=== PATIENT | male | born 1945 | race Caucasian/White ===

== ENCOUNTER 2018-08-21 21:41 | Inpatient (IN) | payer MEDICARE, BC ==
[~2018-08-21] VITALS: Ht 167.6 cm; Wt 122.0 kg
[2018-08-21] MEDS ORDERED: FLUO20CA39 PO (22:20)
[2018-08-21] MEDS ORDERED: LANTUS SQ (22:20)
[2018-08-21] MEDS ORDERED: MULT1TAB74 PO (22:20)
[2018-08-21] MEDS ORDERED: SIMV20TA5 PO (22:20)
[2018-08-21] MEDS ORDERED: PIOG15TA8 PO (22:20)
[2018-08-21] MEDS ORDERED: GLIP5TAB13 PO (22:20)
[2018-08-21] MEDS ORDERED: FINA5TAB11 PO (22:20)
[2018-08-21] MEDS ORDERED: ZOLP10TA5 PO (22:20)
[2018-08-21 22:26] LABS: BASOPHILS # (AUTO) 0.1 X10'3 (0-0.2); BASOPHILS % (AUTO) 0.8 % (0-1); EOSINOPHILS # (AUTO) 0.2 X10'3 (0-0.9); EOSINOPHILS % (AUTO) 2.8 % (0-6); HEMOGLOBIN 13.9 g/dl (14.0-17.9); LYMPHOCYTES # (AUTO) 1.5 X10'3 (1.1-4.8); LYMPHOCYTES % (AUTO) 21.3 % (21-51); MEAN CORPUSCULAR HEMOGLOBIN 31.8 PG (27.0-31.0); MEAN CORPUSCULAR HGB CONC 33.9 g/dL (33.0-36.5); MEAN CORPUSCULAR VOLUME 93.5 FL (78-98); MEAN PLATELET VOLUME 8.3 FL (7.4-10.4); MONOCYTES # (AUTO) 0.7 X10'3 (0-0.9); MONOCYTES % (AUTO) 10.3 % (2-12); NEUTROPHILS # (AUTO) 4.4 X10'3 (1.8-7.7); NEUTROPHILS % (AUTO) 64.8 % (42-75); PLATELET COUNT 184 X10'3 (140-440); RED BLOOD COUNT 4.39 X10'6 (4.70-6.10); RED CELL DISTRIBUTION WIDTH 14.2 % (11.5-14.5); WHITE BLOOD COUNT 6.9 X10'3 (4.5-11.0)
[2018-08-21 22:33] LABS: ALANINE AMINOTRANSFERASE 28 U/L (12-78); ALBUMIN 3.4 G/DL (3.4-5.0); ALKALINE PHOSPHATASE 81 IU/L (46-116); ANION GAP 11 (8-16); ASPARTATE AMINO TRANSFERASE 21 U/L (10-37); BILIRUBIN,TOTAL 0.4 MG/DL (0.1-1.0); BLOOD UREA NITROGEN 20 MG/DL (7-18); BUN/CREATININE RATIO 19.6 (5.4-32.0); CHLORIDE 106 MMOL/L (99-107); CREATININE 1.02 MG/DL (0.60-1.10); GLUCOSE 108 MG/DL (70-104); POTASSIUM 3.8 MMOL/L (3.5-5.1); SODIUM 141 MMOL/L (135-145); TOTAL CARBON DIOXIDE 24.3 MMOL/L (24-32); TOTAL PROTEIN 6.7 G/DL (6.4-8.2); eGFR 72 ML/MIN
[2018-08-21 22:40] LABS: INR 1.1 INR; PROTHROMBIN TIME 10.9 SECONDS (9.0-12.0)
[2018-08-21 22:41] LABS: PARTIAL THROMBOPLASTIN TIME 26 SECONDS (22-32)
[2018-08-22] VITALS (7 sets, daily range): BP systolic 131–189; BP diastolic 64–98
--- NOTE | 2018-08-22 00:39 | NUR ---
PT PLACED ON HOSPITAL BED FOR COMFORT
[2018-08-22] MEDS ORDERED: ondansetron/PF 4mg/2ml inj IV PRN (01:40)
[2018-08-22] MEDS ORDERED: magnesium hydroxide 30ml (MOM) UD suspension PO PRN (01:40)
[2018-08-22] MEDS ORDERED: mag hydrox/Alum hydrox/simeth 30ml oral suspension PO PRN (01:40)
[2018-08-22] MEDS ORDERED: acetaminophen 325mg tablet PO PRN (01:40)
[2018-08-22] MEDS ORDERED: dextrose 50%-water 50ml dispensing syringe IV PRN ×2 (01:45)
[2018-08-22] MEDS ORDERED: glucagon, human recombinant 1mg kit SUBCUT PRN (01:45)
[2018-08-22] MEDS ORDERED: dextrose ORAL solution 15 GM/59 ML bottle PO PRN ×2 (01:45)
[2018-08-22] MEDS ORDERED: MESSAGE TO PHARMACY PO ONE (01:45)
[2018-08-22] MEDS ORDERED: non-formulary drug (Zolpidem Tartrate* (Ambien*) 1 TAB) PO PRN (01:45)
--- NOTE | 2018-08-22 03:30 | NUR ---
PTS RHYTHM CHANGED. PRINTED OUT 5 LEAD AND ORDERED A 12 LEAD. AFTER SHOWING DR HERNANDEZ 5 LEAD WHILE WILL PCT WAS DOING 12 LEAD, PT CONVERTED BACK TO INITIAL RHYTHM
[2018-08-22 03:40] LABS: MAGNESIUM 1.7 MG/DL (1.5-2.4)
[2018-08-22 04:25] LABS: HEMOGLOBIN A1C 7.7 % (4.5-6.2)
--- NOTE | 2018-08-22 06:44 | NUR ---
Patient is resting comfortably. Attempted to call report, was told Pt. floor was unaware of Pt.
--- NOTE | 2018-08-22 06:53 | NUR ---
Patient in room ED 4. I have received report from LAURYN Carvalho and had the opportunity to ask questions and assume patient care.
[2018-08-22] MEDS ORDERED: zolpidem 5mg tablet PO PRN (07:45)
--- NOTE | 2018-08-22 07:51 | NUR ---
Blood sugar was checked by ER nurse at 0700. Patient just arrived to ut on PCU. Charted the blood sugar off of the glucometer check on the labs. Addendum: 08/22/18 at 0752 by Elizabeth Ball RN Amended: Links added.
[2018-08-22] MEDS: FLUoxetine 10mg capsule PO SCH (09:13)
[2018-08-22] MEDS: finasteride 5mg tablet PO SCH (09:31)
--- NOTE | 2018-08-22 12:39 | NUR ---
Not having patient meet protocol or giving him any insulin because he had a sugar of 64 at 0015 in the ER. The patient said that he was low this am and the night nurse had given him a bunch of carbs to eat. He was then 217 around 0500 and I had the ER nurse check his sugar at 0700 because I was going to need it and he wasn't up to the floor yet. I was not told that it was low around 0000. His sugar was 168 at 1200 which was lower than the 181 at 0700. I would expect him to go up at 1200 since he also ate a late breakfast. I believe that he was high at 0700 because of all the carbs he ate in the ER and I don't want to give him insulin because he went from 181 to 168 without any insulin. I'll re-check at 1700 and see if he is still above 160; if so, he'll be made a level 2.
--- NOTE | 2018-08-22 18:40 | NUR ---
Problems reprioritized. Patient report given, questions answered & plan of care reviewed with Tracey RN.
--- NOTE | 2018-08-22 18:49 | NUR ---
Spoke to Dr. Anthony this am regarding the patient's relatively high blood pressure on admit and we saw the patient and discussed what medications he was taking at home. Dr. Anthony was going to restart his lasix and enalapril but I haven't seen it come up yet. The patient's 1100 BP was normal 131/98 so I didn't page him until the 1500 vitals came around and his BP was elevated again. I paged him to remind him and gave him the numbers. (183/66, 175/69) I got no response. The patient is asymptomatic at this time. I will page him again before I leave.
[2018-08-22] MEDS: insulin Lispro (HumaLOG) vial - multi-dose SQ SCH (19:40)
[2018-08-22] MEDS: atorvastatin 10mg tablet PO SCH (21:50)
[2018-08-22] MEDS: insulin glargine (Lantus) pen - multi-dose SQ SCH (21:53)
[2018-08-23] VITALS (17 sets, daily range): BP systolic 156–192; BP diastolic 78–102
[2018-08-23] MEDS: enalaprilat dihydrate 2.5mg/2ml vial IV PRN ×3 (02:09→22:23)
[2018-08-23 05:39] LABS: BASOPHILS # (AUTO) 0.1 X10'3 (0-0.2); BASOPHILS % (AUTO) 0.9 % (0-1); EOSINOPHILS # (AUTO) 0.2 X10'3 (0-0.9); EOSINOPHILS % (AUTO) 4.1 % (0-6); HEMATOCRIT 40.6 % (42.0-52.0); HEMOGLOBIN 13.5 g/dl (14.0-17.9); LYMPHOCYTES # (AUTO) 1.3 X10'3 (1.1-4.8); LYMPHOCYTES % (AUTO) 21.8 % (21-51); MEAN CORPUSCULAR HEMOGLOBIN 31.7 PG (27.0-31.0); MEAN CORPUSCULAR HGB CONC 33.2 g/dL (33.0-36.5); MEAN CORPUSCULAR VOLUME 95.4 FL (78-98); MEAN PLATELET VOLUME 8.6 FL (7.4-10.4); MONOCYTES # (AUTO) 0.6 X10'3 (0-0.9); MONOCYTES % (AUTO) 10.3 % (2-12); NEUTROPHILS # (AUTO) 3.7 X10'3 (1.8-7.7); NEUTROPHILS % (AUTO) 62.9 % (42-75); PLATELET COUNT 152 X10'3 (140-440); RED BLOOD COUNT 4.25 X10'6 (4.70-6.10); RED CELL DISTRIBUTION WIDTH 14.2 % (11.5-14.5); WHITE BLOOD COUNT 5.9 X10'3 (4.5-11.0)
[2018-08-23 05:43] LABS: ALANINE AMINOTRANSFERASE 25 U/L (12-78); ALBUMIN 3.2 G/DL (3.4-5.0); ALKALINE PHOSPHATASE 68 IU/L (46-116); ANION GAP 13 (8-16); ASPARTATE AMINO TRANSFERASE 17 U/L (10-37); BILIRUBIN,TOTAL 0.5 MG/DL (0.1-1.0); BLOOD UREA NITROGEN 14 MG/DL (7-18); BUN/CREATININE RATIO 16.5 (5.4-32.0); CALCIUM 8.8 MG/DL (8.5-10.1); CHLORIDE 108 MMOL/L (99-107); CHOL/HDL RATIO 3.3 (0.00-4.99); CHOLESTEROL 120 MG/DL (0-200); CREATININE 0.85 MG/DL (0.60-1.10); GLUCOSE 85 MG/DL (70-104); HDL CHOLESTEROL 36 MG/DL (35-60); LDL CHOLESTEROL 77 MG/DL (50-100); POTASSIUM 3.6 MMOL/L (3.5-5.1); SODIUM 144 MMOL/L (135-145); TOTAL CARBON DIOXIDE 23.3 MMOL/L (24-32); TOTAL PROTEIN 6.3 G/DL (6.4-8.2); TRIGLYCERIDES 77 MG/DL (20-135); eGFR 89 ML/MIN
--- NOTE | 2018-08-23 07:10 | NUR ---
Patient in room PCU 3026. I have received report from LAURYN RESENDIZ and had the opportunity to ask questions and assume patient care.
[2018-08-23] MEDS: finasteride 5mg tablet PO SCH (07:48)
[2018-08-23] MEDS: FLUoxetine 10mg capsule PO SCH (07:48)
--- NOTE | 2018-08-23 10:01 | NUR ---
DM Consult: A1C 7.7. PT seen by HELLEN for written/verbal DM ed; RD contact information provided. HELLEN encouraged pt to attend CDE course. Addendum: 08/23/18 at [address] Amended: Links added.
[2018-08-23] MEDS ORDERED: famotidine/PF 10 mg/ml inj IV ONE (10:30)
[2018-08-23] MEDS ORDERED: ringers solution, lacted 1,000 ML IV SCH ×2 (10:30→12:45)
--- NOTE | 2018-08-23 11:33 | NUR ---
NOTIFIED LAURYN MEREDITH IN OR; NO ABX ORDERS, INFORMED CONSENT, SURG CONSENT. STATES "DR. CORLEY WILL DO THAT".
[2018-08-23] MEDS ORDERED: LIDOcaine 1% 30ml preserv. free vial ONE (12:38)
[2018-08-23] MEDS ORDERED: ceFAZolin 1000mg inj ONE (12:38)
[2018-08-23] MEDS ORDERED: meperidine/PF 25mg/ml syringe IV PRN ×3 (12:45)
[2018-08-23] MEDS ORDERED: ondansetron/PF 4mg/2ml inj IV PRN (12:45)
[2018-08-23] MEDS ORDERED: morphine 4 MG/ML inj SYRINge IV PRN ×2 (12:45)
[2018-08-23] MEDS ORDERED: proCHLORperazine 10 MG/2 ml inj IV PRN (12:45)
[2018-08-23] MEDS ORDERED: BUPIVAcaine/PF 2.5mg/ml (0.25%) 10ml vial ONE ×3 (12:47→14:45)
[2018-08-23] MEDS ORDERED: MIDAZolam 5mg/5ml vial ONE (13:34)
[2018-08-23] MEDS ORDERED: fentaNYL/PF 50MCG/1 ML 2ML syringe ONE (13:34)
--- NOTE | 2018-08-23 13:53 | NUR ---
report called to roshan sams rn in recovery room. went to surgery via bed at 1342.
[2018-08-23] MEDS ORDERED: CLINDAmcin 900mg/NS 50ml IVPB 50 ML IV ONE (14:00)
[2018-08-23] MEDS ORDERED: clindamycin phosphate 150mg/ml inj. ONE ×2 (14:20)
--- NOTE | 2018-08-23 15:39 | NUR ---
Received from OR via , accompanied by Anesthesiologist DR FINNEGAN and report given by Anesthesiolgist. AWAKE AND NAZIA PAIN. VITALS STABLE. DRESSING DI.
[2018-08-23] MEDS ORDERED: HYDROcodone/acetaminophen 10/325mg tab PO PRN (15:45)
--- NOTE | 2018-08-23 16:29 | NUR ---
Report called to receiving nurse. Transferred via BED Belongings . Special Issues communicated to receiving nurse. AWAKE AND ORIENTED. VITALS STABLE. DRESSING DI. NAZIA PAIN. TO U RM 3025A AT THIS TIME.
--- NOTE | 2018-08-23 16:35 | NUR ---
RECEIVED FROM VIA BED. 1 LITER NS OVER INC LEFT ANTERIOR UPPER CHEST, STERI STRIPS COVERED WITH TEGADERM. SITE WITHOUT SX OF HEMATOMA OR HEMORRHAGE. VS STABE, EXCEPT BP 176/91. WILL CONTINUE TO MONITOR.
--- NOTE | 2018-08-23 17:12 | NUR ---
PAGER ID: [phone] MESSAGE: DR. STOKES, [id number]/LITHIA, RETURNED FROM [facility] [place]. BP:176/91, 180/93, 185/94. CANNOT REPEAT VASOTEC IV TILL 1808. MARCELLA [id number]. TY
[2018-08-23] MEDS ORDERED: hydrALAZINE 20mg/ml inj. IV ONE (17:15)
[2018-08-23] MEDS: lisinopril 20mg tablet PO SCH (17:30)
--- NOTE | 2018-08-23 18:16 | NUR ---
Problems reprioritized. Patient report given, questions answered & plan of care reviewed with LAURYN LIRA.
--- NOTE | 2018-08-23 18:17 | NUR ---
Student documentation: I have reviewed and agree with all interventions, assessments performed and documented by ARACELI.
--- NOTE | 2018-08-23 18:18 | NUR ---
Student Medication Administration: For this medication-pass time frame, all medication were reviewed, dispensed, administered and documented per hospital policy by ARACELI..
--- NOTE | 2018-08-23 18:39 | NUR ---
received report from Prashant COMBS. at bedside, pt lying in bed eating dinner. in no discomfort or distress at this time. PPM placed today, site checked with Prashant RN, dressing CDI, no drainage present. will continue to monitor.
[2018-08-23] MEDS: clindamycin 600mg/D5W 50ml 50 ML IV SCH (20:23)
[2018-08-23] MEDS: atorvastatin 10mg tablet PO SCH (20:23)
[2018-08-23] MEDS: insulin glargine (Lantus) pen - multi-dose SQ SCH (20:39)
[2018-08-24] MEDS ORDERED: enalaprilat dihydrate 2.5mg/2ml vial IV PRN (00:10)
[2018-08-24] MEDS ORDERED: enalaprilat dihydrate 2.5mg/2ml vial IV ONE (00:10)
[2018-08-24] MEDS ORDERED: furosemide 40mg/4ml inj IV ONE (01:45)
[2018-08-24] MEDS: clindamycin 600mg/D5W 50ml 50 ML IV SCH ×3 (02:01→13:48)
[2018-08-24 03:00] VITALS: BP 175/92
[2018-08-24 05:00] VITALS: BP 165/90
[2018-08-24 05:24] LABS: BASOPHILS % (AUTO) 0.5 % (0-1); EOSINOPHILS # (AUTO) 0.1 X10'3 (0-0.9); EOSINOPHILS % (AUTO) 2.4 % (0-6); HEMATOCRIT 43.9 % (42.0-52.0); HEMOGLOBIN 14.7 g/dl (14.0-17.9); LYMPHOCYTES # (AUTO) 0.9 X10'3 (1.1-4.8); LYMPHOCYTES % (AUTO) 16.8 % (21-51); MEAN CORPUSCULAR HEMOGLOBIN 32.1 PG (27.0-31.0); MEAN CORPUSCULAR HGB CONC 33.4 g/dL (33.0-36.5); MONOCYTES # (AUTO) 0.6 X10'3 (0-0.9); MONOCYTES % (AUTO) 10.4 % (2-12); NEUTROPHILS # (AUTO) 3.9 X10'3 (1.8-7.7); NEUTROPHILS % (AUTO) 69.9 % (42-75); PLATELET COUNT 142 X10'3 (140-440); RED BLOOD COUNT 4.57 X10'6 (4.70-6.10); RED CELL DISTRIBUTION WIDTH 14.3 % (11.5-14.5); WHITE BLOOD COUNT 5.6 X10'3 (4.5-11.0)
[2018-08-24 05:32] LABS: ALANINE AMINOTRANSFERASE 22 U/L (12-78); ALBUMIN 3.3 G/DL (3.4-5.0); ALKALINE PHOSPHATASE 72 IU/L (46-116); ANION GAP 12 (8-16); ASPARTATE AMINO TRANSFERASE 21 U/L (10-37); BILIRUBIN,TOTAL 0.7 MG/DL (0.1-1.0); BLOOD UREA NITROGEN 10 MG/DL (7-18); BUN/CREATININE RATIO 11.6 (5.4-32.0); CALCIUM 8.9 MG/DL (8.5-10.1); CHLORIDE 106 MMOL/L (99-107); CREATININE 0.86 MG/DL (0.60-1.10); GLUCOSE 104 MG/DL (70-104); POTASSIUM 3.6 MMOL/L (3.5-5.1); SODIUM 141 MMOL/L (135-145); TOTAL CARBON DIOXIDE 23.3 MMOL/L (24-32); TOTAL PROTEIN 6.6 G/DL (6.4-8.2); eGFR 87 ML/MIN
[2018-08-24 06:00] VITALS: BP 163/81
--- NOTE | 2018-08-24 06:00 | NUR ---
Patient in room PCU 3026. I have received report from Yahaira COMBS and had the opportunity to ask questions and assume patient care.
--- NOTE | 2018-08-24 07:01 | NUR ---
Patient in room PCU 3026. I have received report from LAURYN LIRA and had the opportunity to ask questions and assume patient care.
[2018-08-24] MEDS ORDERED: potassium chloride 10mEq ER tablet PO SCH (08:00)
[2018-08-24] MEDS ORDERED: furosemide 40mg tablet PO SCH (08:00)
[2018-08-24] MEDS: lisinopril 20mg tablet PO SCH (08:34)
[2018-08-24] MEDS: FLUoxetine 10mg capsule PO SCH (08:34)
[2018-08-24] MEDS: finasteride 5mg tablet PO SCH (08:35)
[2018-08-24 11:00] VITALS: BP 144/87
[2018-08-24] MEDS: insulin Lispro (HumaLOG) vial - multi-dose SQ SCH (13:42)
[2018-08-24] MEDS ORDERED: POTA10TA19 PO (13:43)
[2018-08-24] MEDS ORDERED: CLIN-96 PO (13:43)
[2018-08-24] MEDS ORDERED: FURO40TA4 PO (13:43)
[2018-08-24] MEDS ORDERED: LISI40TA4 PO (13:43)
[2018-08-24 15:00] VITALS: BP 160/91
--- NOTE | 2018-08-24 16:34 | NUR ---
Education on new and continuing medications, signs and symptoms of disease processes gone over with Pt and family. Allowed Pt and family to ask questions and answer them. Tele leads removed from Pt and returned to telephone quotation clerk. IV removed from Pt. Pt belongings gathered and sent home with Pt and family. Pt wheel chaired down to lobby by nurse with family. Pt left hospital with family in private car at 1605. Addendum: 08/24/18 at 1644 by Clifton Ricketts RN Note on wrong patient
--- NOTE | 2018-08-24 17:50 | NUR ---
Education on new and continuing medications, signs and symptoms of disease processes gone over with Pt and daughter. Reviewed the need to make 1 week and 2 week follow up appointments with PCP, Dr. Reyes and Dr. Rubio. Allowed Pt and daughter to ask questions concerning hospital stay and discharge paper work. Tele leads removed from Pt and returned to television presenter. IV removed from Pt. Pt belongings gathered and sent home with Pt and daughter. Pt wheel chaired down to lobby by nurse with daughter. Pt left hospital with daughter in private car at 1745.
--- NOTE | 2018-08-24 18:49 | NUR ---
OPTICAL GLASS ETCHERhair specialist: I have reviewed and agree with all interventions, assessments performed and documented by LAURYN ALEJANDRO.
== END 2018-08-24 17:43 | disposition home health service (06) | DRG 242 ==
LOC: ER 21:42 → ED HOLD 08-22 01:39 → PCU 3S 08-22 07:30
PROVIDERS: ADMIT Internal Medicine; ATTEND Family Medicine
PROC: 02HK3JZ Insertion of Pacemaker Lead into Right Ventricle, Percutaneous Approach (ICD-10-PCS; 2018-08-23)
PROC: 02H63JZ Insertion of Pacemaker Lead into Right Atrium, Percutaneous Approach (ICD-10-PCS; 2018-08-23)
PROC: 0JH606Z Insertion of Pacemaker, Dual Chamber into Chest Subcutaneous Tissue and Fascia, Open Approach (ICD-10-PCS; principal; 2018-08-23 13:55)
PROC: 5A09357 Assistance with Respiratory Ventilation, Less than 24 Consecutive Hours, Continuous Positive Airway Pressure (ICD-10-PCS; 2018-08-24)
DX: I49.5 Sick sinus syndrome (principal); I50.43 Acute on chronic combined systolic (congestive) and diastolic (congestive) heart failure; Z68.41 Body mass index [BMI] 40.0-44.9, adult; I44.1 Atrioventricular block, second degree; E66.01 Morbid (severe) obesity due to excess calories; I42.9 Cardiomyopathy, unspecified; E11.9 Type 2 diabetes mellitus without complications; Z60.2 Problems related to living alone; G47.33 Obstructive sleep apnea (adult) (pediatric); I11.0 Hypertensive heart disease with heart failure; K21.9 Gastro-esophageal reflux disease without esophagitis; N40.0 Benign prostatic hyperplasia without lower urinary tract symptoms; Z96.641 Presence of right artificial hip joint; F32.9 Major depressive disorder, single episode, unspecified; F41.9 Anxiety disorder, unspecified; Z88.0 Allergy status to penicillin; Z79.4 Long term (current) use of insulin; Z79.899 Other long term (current) drug therapy; Z85.72 Personal history of non-Hodgkin lymphomas; Z92.21 Personal history of antineoplastic chemotherapy; Z92.3 Personal history of irradiation
CPT/HCPCS: 36415; 71045; 71048; 80053; 80061; 82948; 83036; 83735; 83880; 84443; 84484; 85025; 85610; 85730; 87070; 93005; 93306; 97110; 97116; 97161; 97530; 99285; A4565; A6257; A7000; C1785; G0378; J0360; J0690; J1815; J1940; J2250; J3010; J3490; J7120

== ENCOUNTER 2018-09-15 08:52 | Day surgery (SDC) | payer MEDICARE, BC ==
[2018-09-13 11:35] LABS: BASOPHILS # (AUTO) 0.1 X10'3 (0-0.2); BASOPHILS % (AUTO) 1.6 % (0-1); EOSINOPHILS # (AUTO) 0.3 X10'3 (0-0.9); EOSINOPHILS % (AUTO) 4.6 % (0-6); HEMOGLOBIN 14.4 g/dl (14.0-17.9); LYMPHOCYTES # (AUTO) 1.5 X10'3 (1.1-4.8); LYMPHOCYTES % (AUTO) 23.1 % (21-51); MEAN CORPUSCULAR HEMOGLOBIN 31.7 PG (27.0-31.0); MEAN CORPUSCULAR HGB CONC 33.5 g/dL (33.0-36.5); MEAN CORPUSCULAR VOLUME 94.4 FL (78-98); MEAN PLATELET VOLUME 7.6 FL (7.4-10.4); MONOCYTES # (AUTO) 0.7 X10'3 (0-0.9); MONOCYTES % (AUTO) 10.5 % (2-12); NEUTROPHILS # (AUTO) 3.9 X10'3 (1.8-7.7); NEUTROPHILS % (AUTO) 60.2 % (42-75); PLATELET COUNT 219 X10'3 (140-440); RED BLOOD COUNT 4.55 X10'6 (4.70-6.10); RED CELL DISTRIBUTION WIDTH 13.8 % (11.5-14.5); WHITE BLOOD COUNT 6.4 X10'3 (4.5-11.0)
[2018-09-13 11:50] LABS: ALANINE AMINOTRANSFERASE 33 U/L (12-78); ALBUMIN 3.4 G/DL (3.4-5.0); ALKALINE PHOSPHATASE 77 IU/L (46-116); ANION GAP 9 (8-16); ASPARTATE AMINO TRANSFERASE 27 U/L (10-37); BILIRUBIN,TOTAL 0.4 MG/DL (0.1-1.0); BLOOD UREA NITROGEN 25 MG/DL (7-18); CALCIUM 9.6 MG/DL (8.5-10.1); CHLORIDE 103 MMOL/L (99-107); CREATININE 0.96 MG/DL (0.60-1.10); GLUCOSE 150 MG/DL (70-104); POTASSIUM 3.6 MMOL/L (3.5-5.1); SODIUM 139 MMOL/L (135-145); TOTAL CARBON DIOXIDE 26.7 MMOL/L (24-32); TOTAL PROTEIN 6.9 G/DL (6.4-8.2); eGFR 77 ML/MIN
[2018-09-13 11:53] LABS: INR 1.1 INR; PARTIAL THROMBOPLASTIN TIME 28 SECONDS (22-32); PROTHROMBIN TIME 10.9 SECONDS (9.0-12.0)
[2018-09-15] VITALS (13 sets, daily range): BP systolic 110–153; BP diastolic 67–102
[~2018-09-15] VITALS: Ht 167.6 cm; Wt 117.2 kg
[~2018-09-15 08:52] MED LIST: CLIN-96 PO; FINA5TAB11 PO; FLUO20CA39 PO; FURO40TA4 PO; GLIP5TAB13 PO; LANTUS SQ; LISI40TA4 PO; MULT1TAB74 PO; PIOG15TA8 PO; POTA10TA19 PO; SIMV20TA5 PO; ZOLP10TA5 PO
[2018-09-15] MEDS ORDERED: MESSAGE TO PHARMACY PO ONE (09:20)
[2018-09-15] MEDS ORDERED: glucagon, human recombinant 1mg kit SUBCUT PRN (09:20)
[2018-09-15] MEDS ORDERED: dextrose 50%-water 50ml dispensing syringe IV PRN ×2 (09:20)
[2018-09-15] MEDS ORDERED: insulin Lispro (HumaLOG) vial - multi-dose SQ SCH (09:20)
[2018-09-15] MEDS ORDERED: normal saline 1,000 ML IV SCH (09:20)
[2018-09-15] MEDS ORDERED: LORazepam 0.5 MG tablet PO PRN (09:20)
[2018-09-15] MEDS ORDERED: diphenhydrAMINE 25mg capsule PO PRN (09:20)
[2018-09-15] MEDS ORDERED: dextrose ORAL solution 15 GM/59 ML bottle PO PRN ×2 (09:20)
[2018-09-15] MEDS ORDERED: nitroGLYCERIN 0.4mg SUBLingual tab SL PRN ×2 (09:20→12:55)
[2018-09-15] MEDS ORDERED: midazolam 2 mg/2 ml injection ONE (09:54)
[2018-09-15] MEDS ORDERED: fentaNYL/PF 50MCG/1 ML 2ML syringe ONE (09:54)
[2018-09-15] MEDS ORDERED: LIDOcaine 1% (10mg/ml)w/preservative injection 20ml MDV ONE (09:54)
[2018-09-15] MEDS ORDERED: iohexol 350 MG/ML 50ML vial IV ONE (09:55)
[2018-09-15] MEDS ORDERED: iohexol 350MG/ML 100ml bottle IV ONE (09:55)
[2018-09-15] MEDS ORDERED: ASPI-1265 PO (10:02)
[2018-09-15] MEDS ORDERED: POTA20PA40 PO (10:12)
[2018-09-15] MEDS ORDERED: FURO-149 PO (10:12)
[2018-09-15] MEDS ORDERED: LISI40TA4 PO (10:12)
[2018-09-15] MEDS ORDERED: sodium chloride 0.45% 1,000 ML IV ONE (12:55)
[2018-09-15] MEDS ORDERED: HYDROcodone/acetaminophen 10/325mg tab PO PRN (13:00)
[2018-09-15] MEDS ORDERED: HYDROcodone/acetaminophen 5mg/325mg tablet PO PRN (13:00)
[2018-09-15] MEDS ORDERED: ondansetron/PF 4mg/2ml inj IV PRN (13:00)
[2018-09-15] MEDS ORDERED: OXAZEpam 15mg capsule PO PRN (13:00)
[2018-09-15] MEDS ORDERED: proCHLORperazine 10 MG/2 ml inj IV PRN (13:00)
[2018-09-15] MEDS ORDERED: insulin glargine (Lantus) pen - multi-dose SQ SCH (21:00)
== END 2018-09-15 18:00 | disposition home or self-care (01) ==
LOC: SSTAY O 08:52
PROVIDERS: ATTEND Internal Medicine Cardiovascular Disease
DX: I25.10 Atherosclerotic heart disease of native coronary artery without angina pectoris (principal); E78.5 Hyperlipidemia, unspecified; I73.9 Peripheral vascular disease, unspecified; E11.9 Type 2 diabetes mellitus without complications; I25.2 Old myocardial infarction; I50.9 Heart failure, unspecified; I42.9 Cardiomyopathy, unspecified; R42 Dizziness and giddiness; Z95.0 Presence of cardiac pacemaker
CPT/HCPCS: 36415; 70450; 71046; 80053; 82948; 85025; 85610; 85730; 93005; 93458; 99152; 99153; A6257; J1644; J2001; J2250; J3010; J7030; Q0163; Q9967; A4620; C1760; C1769; J1815

== ENCOUNTER 2020-11-07 13:46 | Emergency (ER) | payer OTHER, MEDICARE ==
[~2020-11-07] VITALS: Ht 167.6 cm; Wt 107.0 kg
[~2020-11-07 13:46] MED LIST changes: +ASPI-1265 PO; -CLIN-96 PO; +FURO-149 PO; -FURO40TA4 PO; +LISI40TA13 PO; -LISI40TA4 PO; +MULT-620 PO; -MULT1TAB74 PO; -POTA10TA19 PO; +POTA20PA40 PO; +SIMV-42 PO; -SIMV20TA5 PO; -ZOLP10TA5 PO
[2020-11-07 14:32] LABS: BASOPHILS # (AUTO) 0.1 X10'3 (0-0.2); BASOPHILS % (AUTO) 0.9 % (0-1); EOSINOPHILS # (AUTO) 0.2 X10'3 (0-0.9); EOSINOPHILS % (AUTO) 3.1 % (0-6); HEMATOCRIT 44.4 % (42.0-52.0); HEMOGLOBIN 14.5 g/dl (14.0-17.9); LYMPHOCYTES # (AUTO) 1.3 X10'3 (1.1-4.8); LYMPHOCYTES % (AUTO) 19.5 % (21-51); MEAN CORPUSCULAR HEMOGLOBIN 30.6 PG (27.0-31.0); MEAN CORPUSCULAR HGB CONC 32.8 g/dL (33.0-36.5); MEAN CORPUSCULAR VOLUME 93.5 FL (78-98); MEAN PLATELET VOLUME 6.8 FL (7.4-10.4); MONOCYTES # (AUTO) 0.7 X10'3 (0-0.9); MONOCYTES % (AUTO) 10.7 % (2-12); NEUTROPHILS # (AUTO) 4.5 X10'3 (1.8-7.7); NEUTROPHILS % (AUTO) 65.8 % (42-75); PLATELET COUNT 349 X10'3 (140-440); RED BLOOD COUNT 4.75 X10'6 (4.70-6.10); RED CELL DISTRIBUTION WIDTH 13.8 % (11.5-14.5); WHITE BLOOD COUNT 6.9 X10'3 (4.5-11.0)
[2020-11-07 14:39] LABS: CLARITY,URINE SLIGHTLY CLOUDY (Clear); COLOR,URINE YELLOW (Yellow); GLUCOSE, URINE >=1000 mg/dl (Neg); KETONES,URINE NEGATIVE (Neg); LEUKOCYTE ESTERASE ,URINE SMALL (Neg); NITRITES, URINE NEGATIVE (Neg); OCCULT BLOOD,URINE LARGE (Neg); PROTEIN,URINE TRACE mg/dl (Neg); UROBILINOGEN,URINE 0.2 E.U/dL (0.2-1.0)
[2020-11-07 14:46] LABS: ALANINE AMINOTRANSFERASE 32 U/L (12-78); ALBUMIN 3.3 G/DL (3.4-5.0); ALBUMIN/GLOBULIN RATIO 0.8 (1.1-1.5); ALKALINE PHOSPHATASE 95 IU/L (46-116); ANION GAP 11 (8-16); ASPARTATE AMINO TRANSFERASE 46 U/L (10-37); BILIRUBIN,TOTAL 0.4 MG/DL (0.1-1.0); BLOOD UREA NITROGEN 18 MG/DL (7-18); BUN/CREATININE RATIO 18.6 (5.4-32.0); CALCIUM 9.4 MG/DL (8.5-10.1); CHLORIDE 103 MMOL/L (99-107); CREATININE 0.97 MG/DL (0.60-1.10); GLUCOSE 184 MG/DL (70-104); LIPASE < 50 U/L (73-393); POTASSIUM 4.3 MMOL/L (3.5-5.1); SODIUM 141 MMOL/L (135-145); TOTAL CARBON DIOXIDE 27.4 MMOL/L (24-32); TOTAL PROTEIN 7.5 G/DL (6.4-8.2); eGFR 75 ML/MIN
[2020-11-07 14:50] LABS: UA COLLECTION TYPE CLN CATCH MIDSTREAM
[2020-11-07 14:51] LABS: RBC,URINE TNTC /HPF (0-2); WBC,URINE 50-100 /HPF (0-4)
[2020-11-07 14:52] LABS: BACTERIA,URINE FEW /HPF (Neg); MUCUS STRANDS NONE SEEN /LPF (Neg); SQUAMOUS EPITHELIAL CELL,UR FEW /LPF (FEW)
[2020-11-07] MEDS ORDERED: iohexol 350MG/ML 100ml bottle IV ONE (16:17)
[2020-11-07] MEDS ORDERED: MESSAGE TO NURSING PO NR (16:39)
[2020-11-07] MEDS: CefTRIAXone 2gm/D5W 50ml BAG 50 ML IV ONE ×2 (16:44→16:49)
[2020-11-07] MEDS ORDERED: ONDA4TAB6 PO (17:45)
[2020-11-07] MEDS ORDERED: HYDR-3965 PO (17:45)
[2020-11-07] MEDS ORDERED: LEVO500T89 PO (17:45)
[2020-11-07 18:09] VITALS: BP 169/96
== END 2020-11-07 18:12 | disposition home or self-care (01) ==
LOC: ER 13:46
DX: R10.31 Right lower quadrant pain (principal); R10.9 Unspecified abdominal pain; N39.0 Urinary tract infection, site not specified; N20.0 Calculus of kidney; R59.0 Localized enlarged lymph nodes; I72.3 Aneurysm of iliac artery; I10 Essential (primary) hypertension; E11.9 Type 2 diabetes mellitus without complications; Z88.0 Allergy status to penicillin; Z87.440 Personal history of urinary (tract) infections; Z79.899 Other long term (current) drug therapy
CPT/HCPCS: 36415; 71275; 74174; 74176; 80053; 81001; 83690; 85025; 87077; 87088; 87186; 93005; 99285; Q9967; J0696

== ENCOUNTER 2020-12-14 13:58 | Emergency (ER) | payer OTHER, MEDICARE ==
[~2020-12-14] VITALS: Ht 167.6 cm; Wt 100.0 kg
[~2020-12-14 13:58] MED LIST changes: +ONDA4TAB6 PO
[2020-12-14 14:40] LABS: BASOPHILS # (AUTO) 0.1 X10'3 (0-0.2); BASOPHILS % (AUTO) 1.2 % (0-1); EOSINOPHILS # (AUTO) 0.2 X10'3 (0-0.9); EOSINOPHILS % (AUTO) 2.1 % (0-6); HEMATOCRIT 39.5 % (42.0-52.0); LYMPHOCYTES # (AUTO) 0.8 X10'3 (1.1-4.8); MEAN CORPUSCULAR HEMOGLOBIN 30.4 PG (27.0-31.0); MEAN CORPUSCULAR HGB CONC 32.9 g/dL (33.0-36.5); MEAN CORPUSCULAR VOLUME 92.2 FL (78-98); MEAN PLATELET VOLUME 6.9 FL (7.4-10.4); MONOCYTES # (AUTO) 0.6 X10'3 (0-0.9); MONOCYTES % (AUTO) 8.5 % (2-12); NEUTROPHILS # (AUTO) 5.5 X10'3 (1.8-7.7); NEUTROPHILS % (AUTO) 77.2 % (42-75); PLATELET COUNT 399 X10'3 (140-440); RED BLOOD COUNT 4.29 X10'6 (4.70-6.10); RED CELL DISTRIBUTION WIDTH 14.2 % (11.5-14.5); WHITE BLOOD COUNT 7.1 X10'3 (4.5-11.0)
[2020-12-14 14:56] LABS: ALANINE AMINOTRANSFERASE 43 U/L (12-78); ALBUMIN 2.4 G/DL (3.4-5.0); ALBUMIN/GLOBULIN RATIO 0.5 (1.1-1.5); ALKALINE PHOSPHATASE 114 IU/L (46-116); ANION GAP 12 (8-16); ASPARTATE AMINO TRANSFERASE 50 U/L (10-37); BILIRUBIN,TOTAL 0.4 MG/DL (0.1-1.0); BLOOD UREA NITROGEN 31 MG/DL (7-18); BUN/CREATININE RATIO 21.4 (5.4-32.0); CALCIUM 9.7 MG/DL (8.5-10.1); CHLORIDE 102 MMOL/L (99-107); CREATININE 1.45 MG/DL (0.60-1.10); GLUCOSE 148 MG/DL (70-104); POTASSIUM 4.7 MMOL/L (3.5-5.1); SODIUM 138 MMOL/L (135-145); TOTAL CARBON DIOXIDE 24.1 MMOL/L (24-32); TOTAL PROTEIN 6.9 G/DL (6.4-8.2); eGFR 47 ML/MIN
[2020-12-14] MEDS ORDERED: normal saline 1000ML IV soln IVB ONE ×2 (16:25→18:25)
[2020-12-14 17:13] LABS: D-DIMER 2.33 MG/L FEU (0-0.50)
[2020-12-14] MEDS ORDERED: iohexol 350MG/ML 100ml bottle IV ONE (18:23)
[2020-12-14 18:51] LABS: CLARITY,URINE CLOUDY (Clear); COLOR,URINE YELLOW (Yellow); GLUCOSE, URINE NEGATIVE (Neg); KETONES,URINE NEGATIVE (Neg); LEUKOCYTE ESTERASE ,URINE LARGE (Neg); NITRITES, URINE NEGATIVE (Neg); OCCULT BLOOD,URINE MODERATE (Neg); PH,URINE 5.5 (4.8-8.0); PROTEIN,URINE NEGATIVE (Neg); UROBILINOGEN,URINE 0.2 E.U/dL (0.2-1.0)
[2020-12-14 18:52] LABS: UA COLLECTION TYPE CLN CATCH MIDSTREAM
[2020-12-14] MEDS ORDERED: CEPH-585 PO ×2 (18:55→19:11)
[2020-12-14] MEDS ORDERED: MESSAGE TO NURSING PO SCH (19:00)
[2020-12-14 19:01] LABS: BACTERIA,URINE 2+ /HPF (Neg); SQUAMOUS EPITHELIAL CELL,UR FEW /LPF (FEW); WBC,URINE TNTC /HPF (0-4)
[2020-12-14 19:02] LABS: MUCUS STRANDS NONE SEEN /LPF (Neg)
[2020-12-14] MEDS ORDERED: cephalexin 250mg capsule PO ONE (19:05)
[2020-12-14 19:13] VITALS: BP 120/70
--- NOTE | 2020-12-14 19:26 | NUR ---
CAB ETA 90 MINS
== END 2020-12-14 19:53 | disposition home or self-care (01) ==
LOC: ER 13:59
DX: E86.0 Dehydration (principal); Z20.822 Contact with and (suspected) exposure to COVID-19; N39.0 Urinary tract infection, site not specified; I10 Essential (primary) hypertension; E11.9 Type 2 diabetes mellitus without complications; Z95.0 Presence of cardiac pacemaker; Z88.0 Allergy status to penicillin; Z79.82 Long term (current) use of aspirin; Z79.899 Other long term (current) drug therapy; Z79.4 Long term (current) use of insulin
CPT/HCPCS: 36415; 71045; 71275; 80053; 81001; 83880; 84484; 85025; 85379; 87077; 87088; 87186; 87635; 93005; 96360; 96361; 99285; C9803; J7030; Q9967

== ENCOUNTER 2021-01-14 20:48 | Emergency (ER) | payer OTHER, MEDICARE ==
[~2021-01-14] VITALS: Ht 177.8 cm; Wt 90.9 kg
[~2021-01-14 20:48] MED LIST changes: +ENAL20TA75 PO; -GLIP5TAB13 PO; +METF-438 PO; +METO-411 PO; -PIOG15TA8 PO
[2021-01-14] MEDS ORDERED: normal saline 1000ML IV soln IVB ONE (21:35)
[2021-01-14] MEDS ORDERED: dextrose 5%-normal saline 1,000 ML IV ONE (21:50)
[2021-01-14 21:53] LABS: BASOPHILS % (AUTO) 0.3 % (0-1); EOSINOPHILS # (AUTO) 0.1 X10'3 (0-0.9); EOSINOPHILS % (AUTO) 0.9 % (0-6); HEMOGLOBIN 11.9 g/dl (14.0-17.9); LYMPHOCYTES # (AUTO) 0.4 X10'3 (1.1-4.8); LYMPHOCYTES % (AUTO) 6.1 % (21-51); MEAN CORPUSCULAR HEMOGLOBIN 30.3 PG (27.0-31.0); MEAN CORPUSCULAR VOLUME 91.6 FL (78-98); MEAN PLATELET VOLUME 7.3 FL (7.4-10.4); MONOCYTES # (AUTO) 0.5 X10'3 (0-0.9); MONOCYTES % (AUTO) 6.8 % (2-12); NEUTROPHILS # (AUTO) 5.8 X10'3 (1.8-7.7); NEUTROPHILS % (AUTO) 85.9 % (42-75); PLATELET COUNT 270 X10'3 (140-440); RED BLOOD COUNT 3.93 X10'6 (4.70-6.10); RED CELL DISTRIBUTION WIDTH 16.8 % (11.5-14.5); WHITE BLOOD COUNT 6.8 X10'3 (4.5-11.0)
[2021-01-14 22:09] LABS: ALANINE AMINOTRANSFERASE 28 U/L (12-78); ALBUMIN/GLOBULIN RATIO 0.6 (1.1-1.5); ALKALINE PHOSPHATASE 119 IU/L (46-116); ANION GAP 13 (8-16); ASPARTATE AMINO TRANSFERASE 89 U/L (10-37); BILIRUBIN,TOTAL 0.4 MG/DL (0.1-1.0); BLOOD UREA NITROGEN 109 MG/DL (7-18); BUN/CREATININE RATIO 31.9 (5.4-32.0); CALCIUM 11.9 MG/DL (8.5-10.1); CHLORIDE 110 MMOL/L (99-107); CREATININE 3.42 MG/DL (0.60-1.10); GLUCOSE 63 MG/DL (70-104); SODIUM 140 MMOL/L (135-145); TOTAL CARBON DIOXIDE 17.3 MMOL/L (24-32); TOTAL PROTEIN 5.3 G/DL (6.4-8.2); eGFR 18 ML/MIN
[2021-01-14 22:14] LABS: POTASSIUM 7.5 MMOL/L (3.5-5.1)
[2021-01-14] MEDS ORDERED: insulin regular, human U-100 3ml vial - multi-dose IV ONE (22:20)
[2021-01-14] MEDS ORDERED: dextrose 50%-water 50ml dispensing syringe IV ONE (22:20)
[2021-01-14] MEDS ORDERED: albuterol 2.5 MG/3 ML nebule NEB ONE (22:20)
[2021-01-14] MEDS ORDERED: calcium chloride 100 MG/1 ML inj IV ONE (22:20)
[2021-01-14] MEDS ORDERED: insulin regular, human 10 units/0.1 ml syringe IV ONE (22:30)
[2021-01-14 22:36] LABS: CLARITY,URINE CLOUDY (Clear); COLOR,URINE AMBER (Yellow); GLUCOSE, URINE NEGATIVE (Neg); KETONES,URINE TRACE mg/dl (Neg); LEUKOCYTE ESTERASE ,URINE MODERATE (Neg); OCCULT BLOOD,URINE LARGE (Neg); PROTEIN,URINE >=300 mg/dl (Neg)
[2021-01-14 22:52] LABS: UA COLLECTION TYPE FOLEY CATH
[2021-01-14 22:56] LABS: BACTERIA,URINE NONE SEEN /HPF (Neg); RBC,URINE TNTC /HPF (0-2); WBC,URINE 0-4 /HPF (0-4)
[2021-01-14 22:57] LABS: SQUAMOUS EPITHELIAL CELL,UR NONE SEEN /LPF (FEW)
[2021-01-14] MEDS ORDERED: normal saline 1000ml 1,000 ML IV ONE (23:20)
[2021-01-14 23:29] LABS: NITRITES, URINE POSITIVE (Neg)
--- NOTE | 2021-01-14 23:45 | NUR ---
Pt says he wants to "cease all treatment immediately". Advised would inform MD Burks. When told MD would come speak to him he gets verbally abusive and says everyone is lying to him and causing him pain.
[2021-01-14] MEDS ORDERED: LIDOcaine/epinephrine/tetracaine TOPICAL sol 3 ML syringe TOP ONE (23:50)
[2021-01-15] MEDS ORDERED: NORepinephrine 8mg/ 250ml NS 250 ML IV PRN (01:00)
[2021-01-15] MEDS ORDERED: PATIROMER CALCIUM SORBITEX 8.4 GM POWD.PACK PO ONE (01:50)
[2021-01-15] MEDS ORDERED: albumin (Human) 5% 250ml 250 ML IV ONE (01:55)
[2021-01-15 02:38] LABS: ALBUMIN 1.9 G/DL (3.4-5.0); ANION GAP 15 (8-16); BLOOD UREA NITROGEN 97 MG/DL (7-18); BUN/CREATININE RATIO 29.6 (5.4-32.0); CALCIUM 11.8 MG/DL (8.5-10.1); CHLORIDE 110 MMOL/L (99-107); CREATININE 3.28 MG/DL (0.60-1.10); GLUCOSE 200 MG/DL (70-104); MAGNESIUM 1.9 MG/DL (1.5-2.4); PARTIAL THROMBOPLASTIN TIME 23 SECONDS (22-32); PHOSPHORUS 4.9 MG/DL (2.3-4.5); SODIUM 141 MMOL/L (135-145); TOTAL CARBON DIOXIDE 15.7 MMOL/L (24-32); eGFR 18 ML/MIN
[2021-01-15] MEDS ORDERED: acetaminophen 1,000mg/100ml IV 100 ML IV ONE (02:40)
[2021-01-15 02:41] LABS: POTASSIUM 6.4 MMOL/L (3.5-5.1)
[2021-01-15 03:08] LABS: ABG BASE EXCESS -8.9 mmol/L (-2.0-2.0); ABG HCO3 14.5 mmol/L (22.0-26.0); ABG OXYGEN SATURATION 96.6 % (94-97); ABG PCO2 (T) 24.8 mmHg (35.0-48.0); ABG PO2 (T) 93.1 mmHg (75.0-100.0); ALLEN'S TEST POSITIVE; FCOHb 0.3 % (0.0-3.9); FLOW 4 L/min; FMetHb 0.3 % (0.0-1.5); PATIENT TEMPERATURE 36.7; TOTAL HEMOGLOBIN 12.8 G/dl (14.0-18.0)
--- NOTE | 2021-01-15 03:56 | NUR ---
Pt has apparent pressure ulcer to lower sacrum with two open areas thru epidermis. Wound present on arrival. Placed foam dressing and LET prior to documentation; no photograph available. Two apparent pre-existing wounds to posterior of both feet with foam dressings present on arrival; dressings left in place, wounds not visualized.
--- NOTE | 2021-01-15 06:45 | NUR ---
Linen changed and pat repositioned for comfort at this time, heels floated, dressings to bilateral heels and sacral area CDI. Bilateral breath sounds clear and equal, patient drowsy, oriented X4, O2 titrated from 6L to 4L NC, SPO2 96%, LIJ all ports flushing well, levophed infusing at 0.1mcg/kg/min, 20G IV to left wrist saline locked WNL, IV to righ hand DC per patient request, canula intact. BLE 2+ pitting edema, patient severely weak, unable to assist with turning/repositioning, patient with difficulty drinking water from straw r/t weakness and "freeman in my mouth make me cough". Call light within reach, bed to lowest position.
[2021-01-15] MEDS ORDERED: heparin, porcine 5000 units/ml vial SQ SCH (08:00)
[2021-01-15] MEDS ORDERED: morphine 10mg/ml inj. IV PRN (09:05)
[2021-01-15] MEDS ORDERED: LORazepam 2 mg/ml vial IV PRN (09:05)
[2021-01-15] MEDS ORDERED: morphine 10mg/0.5ml (conc. morphine) oral syringe PO PRN (09:05)
[2021-01-15] MEDS ORDERED: acetaminophen 325mg tablet PO PRN (09:05)
--- NOTE | 2021-01-15 09:20 | NUR ---
PER DR SEQUEIRA PAT STATES HE WISHES TO BE DNR WITH COMFORT CARE.
[2021-01-15] MEDS ORDERED: sodium bicarbonate (8.4%) inj. 150 MEQ in dextrose 5%-water 1,000 ML IV SCH (09:30)
--- NOTE | 2021-01-15 09:33 | NUR ---
SPOKE WITH RADHA WHO STATED SHE WILL COME TO BEDSIDE SOON POSSIBLE PER PATIENT'S WISHES AND WILL NOTIFY FAMILY.
--- NOTE | 2021-01-15 11:14 | NUR ---
DR MELARA AT BEDSIDE TO SPEAK WITH PAT REGARDING DISCHARGE PLAN.
--- NOTE | 2021-01-15 12:28 | NUR ---
PAGE SENT TO CASE MANAGEMENT REGARDING DC PLAN OF CARE PER FAMILY REQUEST.
--- NOTE | 2021-01-15 13:14 | NUR ---
Met with family at bedside, answered all questions appropriately, however, daughter in law did not appreciate input, explained that patient did not meet criteria for admission, transportation time 1400, notified family that none of his personal belongings came with him per Eddie Cleveland
[2021-01-15 14:00] VITALS: BP 76/53
[2021-01-15] MEDS ORDERED: docusate sod 100mg capsule PO SCH (20:00)
== END 2021-01-15 14:27 | disposition home or self-care (01) ==
LOC: ER 20:49 → UNDOADMIN 01-15 01:58 → ED HOLD 01-15 01:58 → UNDODISIN 01-15 13:41 → ER 01-15 14:27
DX: I95.9 Hypotension, unspecified (principal); Z20.822 Contact with and (suspected) exposure to COVID-19; N17.9 Acute kidney failure, unspecified; I50.42 Chronic combined systolic (congestive) and diastolic (congestive) heart failure; E87.5 Hyperkalemia; R62.7 Adult failure to thrive; L89.159 Pressure ulcer of sacral region, unspecified stage; Z85.72 Personal history of non-Hodgkin lymphomas
CPT/HCPCS: 36415; 36600; 71045; 80048; 80053; 81001; 82803; 82948; 83605; 83735; 84100; 84145; 85018; 85025; 85610; 85730; 87040; 87081; 87088; 87635; 93005; 93308; 94640; 96361; 96365; 96375; 99291; C9803; J0131; J1815; J7030; J7042; P9045; 94760; G0378